=== PATIENT | female | born 1985 | race Caucasian/White ===

== ENCOUNTER → 2024-01-27 07:04 | Outpatient (REF) | payer BC, SELFPAY | LOC: HWRAD 07:04 | PROVIDERS: ATTENDING PHYSICIAN Family Medicine | DX: K42.9 Umbilical hernia without obstruction or gangrene (principal); R10.33 Periumbilical pain | CPT/HCPCS: 76705 ==

== ENCOUNTER → 2024-04-18 14:26 | Outpatient (REF) | payer BC, SELFPAY | LOC: HWRAD 14:26 | PROVIDERS: ATTENDING PHYSICIAN Internal Medicine Endocrinology, Diabetes & Metabolism; FAMILY PHYSICIAN Family Medicine | DX: E04.2 Nontoxic multinodular goiter (principal) | CPT/HCPCS: 76536 ==

== ENCOUNTER 2025-05-16 16:47 | Emergency (ER) | payer BC, SELFPAY ==
[2025-05-16 16:51] VITALS: BP 118/76
[2025-05-16 17:09] LABS: Urine Character Cloudy (Clear)
[2025-05-16 17:27] LABS: Urine Squamous Cell 0-2 /LPF (Few)
[2025-05-16 17:29] LABS: Urine Red Blood Cell >100 /HPF (0-2)
[2025-05-16 17:59] LABS: Hematocrit 37.1 % (37.0-47.0); Hemoglobin 11.5 g/dL (12.0-16.0); Mean Corp Hgb Conc. 31.0 g/dL (33.0-37.0); Mean Corpuscular Volume 82.4 fL (81.0-99.0); Nucleated Red Blood Cells % 0 %; Platelet Count 204 10^3/uL (130-400); Red Cell Dist. Width 14.5 % (11.5-14.5)
[2025-05-16 18:21] LABS: ALT (SGPT) 30 U/L (0-35); AST (SGOT) 36 U/L (14-36); Albumin 4.7 g/dl (3.5-5.0); Alkaline Phosphatase 52 U/L (38-126); Blood Urea Nitrogen 20 mg/dl (7-17); Calcium 9.4 mg/dl (8.4-10.2); Carbon Dioxide 28 mmol/L (22-30); Chloride 104 mmol/L (98-107); Glucose 95 mg/dl (70-99); Potassium 4.2 mmol/L (3.5-5.1); Sodium 137 mmol/L (135-145); Total Protein 8.0 g/dl (6.3-8.2); eGFR > 60.00
--- NOTE | 2025-05-16 19:14 | ED.GENMED ---
History of Present Illness
General
Chief Complaint: Urinary Symptoms
Source: patient
Exam Limitations: none
Time Seen by Provider: 05/16/25 18:53
History of Present Illness
History of Present Illness:
39-year-old female presents with hematuria starting yesterday. She notes a slight increased frequency of urination denies any significant dysuria but does note a mild lower back discomfort in the center. No fevers nausea or vomiting. Of note, she
had an abdominoplasty 7 weeks ago with a hernia repair. She does not recall having a catheter at that time. She is healthy otherwise. She has been moving her bowels. No other complaints at this time
Past History
Past History
ED Past Medical History: NIDDM, Hypothyroidism and Other (PCOS, Heart murmur)
ED Past Surgical History: and Gynecological (Right ovary and tube removed)
Social History
Tobacco: Non-smoker
Alcohol: None
Drug: None
Personal: Single
Living: with family
Employment: Employed
Family History
Family History: Other (Noncontributory)
Phy Exam
Physical Exam
Physical Exam:
General: Well-appearing female no acute respiratory distress
HEENT normal cephalic atraumatic
Heart: Regular rate and rhythm
Lungs: Clear no wheeze
Abdomen is soft and nontender
Extremities: No cyanosis
Course
Orders/Labs/Results
Orders:
Orders
05/16/25 16:59
UA Reflex to Culture [Urinalysis Reflex To Culture] Urgent
Date Specimen was Collected: 05/16/25
Time Specimen was Collected: 16:54
Urine Microscopic Reflex Cult Urgent
Urine Culture Urgent
MINA Source: U
Specimen Description:
Date Specimen was Collected: 05/16/25
Time Specimen was Collected: 16:54
05/16/25 17:48
Complete Blood Count/With Diff Urgent
Comprehensive Metabolic Panel Urgent
05/16/25 19:10
Cefdinir [Omnicef] 300 mg PO NOW STA
Abnormal Lab Results
05/16/25 05/16/25
16:59 17:48
Hgb 11.5 L g/dL
(12.0-16.0)
MCH 25.6 L pg
(27.0-31.0)
MCHC 31.0 L g/dL
(33.0-37.0)
MPV 10.7 H fL
(7.4-10.4)
BUN 20 H mg/dl
(7-17)
Creatinine 0.5 L mg/dL
(0.6-1.0)
Urine Ketones 1+ A
(Negative)
Ur Occult Blood Reflex 4+ A
(Negative)
Leukocyte Esterase Rfl 2+ A
(Negative)
Urine RBC >100 A /HPF
(0-2)
Urine WBC (Reflex) 11-15 A /HPF
(0-5)
Urine Bacteria (Reflex) Many A
(Negative)
Urine Albumin (Reflex) 3+ A
(Neg - Trace)
05/16/25 17:48
05/16/25 17:48
Vital Signs
Initial and Last Documented VS:
Initial Vital Signs
Temp Pulse Resp BP Pulse Ox
98 F 80 20 118/76 99
05/16/25 16:51 05/16/25 16:51 05/16/25 16:51 05/16/25 16:51 05/16/25 16:51
Last Documented Vital Signs
Temp Pulse Resp BP Pulse Ox
98 F 80 20 118/76 99
05/16/25 16:51 05/16/25 16:51 05/16/25 16:51 05/16/25 16:51 05/16/25 16:51
MDM/Problems Addressed
Differential Diagnosis Includes:
Patient with hematuria and increased frequency. Consider UTI versus cystitis versus kidney stone although pain is minimal she has no nausea vomiting looks very comfortable. She does not clinically appear like a kidney stone.
Urinalysis consistent with UTI with white cells blood and bacteria. Considered and discussed about CT scan of the abdomen to evaluate for kidney stone shared decision making occurred we decided against it at this time given her minimal discomfort.
Will cover for UTI and have her follow-up.
*Pulse Oximetry
SaO2: 99
Oxygen Mode of Delivery: Room air
Patient hypoxic: no
*Critical Care Note
Total Time (30-74mins, 75-104mins- exclusive of procedures): Not Applicable
ED Attending Note
-
Portions of this chart may have been created with voice recognition software.� Occasional wrong word or��sound alike� substitutions may have occurred due to the inherent limitations of voice recognition software.
Discharge Plan
Departure
Patient Disposition: Home (Routine Discharge)
Date of Disposition: 05/16/25
Time of Disposition: 19:17
Patient with high blood pressure during this ER visit?: No
Discharge Problem:
UTI (urinary tract infection)
Prescriptions:
New
cefdinir 300 mg capsule
300 mg PO BID Qty: 14 0RF
No Action
multivitamin with folic acid [Tab-A-Ricco] 1 TABLET tablet
1 tab PO HS
(DME) blood sugar diagnostic [Blood Glucose Test] 1 EACH strip
1 ea MC ACHS Qty: 200 0RF
Rx Instructions:
CONTOUR NEXT
E11.65
(DME) pen needle, diabetic 1 EACH needle
1 ea MC ACHS Qty: 200 0RF
Rx Instructions:
BD BOOM pen needles
E11.65
(DME) lancets 1 EACH misc
1 ea MC ACHS Qty: 200 0RF
Rx Instructions:
Contour Next lancets
E11.65
insulin degludec [Tresiba FlexTouch U-100] 100 UNIT/ML insulin pen
32 unit SQ HS Qty: 5 0RF
Rx Instructions:
E11.65
levothyroxine 150 MCG tablet
150 mcg PO DAILY@0700 Qty: 90 0RF
metformin 1,000 MG tablet
1,000 mg PO BID Qty: 240 0RF
insulin lispro [Humalog KwikPen Insulin] 100 UNIT/ML insulin pen
10 units SC AC Qty: 5 0RF
Rx Instructions:
E11.65
hydrocodone-acetaminophen 1 TABLET tablet
1 tab PO Q4HPRN PRN (Reason: pain) Qty: 10 0RF
ibuprofen 600 MG tablet
600 mg PO Q6HPRN PRN (Reason: pain) Qty: 20 0RF
meclizine 25 MG tablet
25 - 50 mg PO BID PRN (Reason: dizziness) Qty: 20 0RF
ondansetron 4 MG tablet,disintegrating
4 mg PO TIDPRN PRN (Reason: nausea/vomiting) Qty: 15 0RF
cefpodoxime 200 MG tablet
200 mg PO BID Qty: 20 0RF
Referrals:
Monique Owens DO [Family Provider, Family Practice]
Activity Restrictions/Additional Instructions:
Drink plenty of fluids. Use antibiotics as directed. Return if worse otherwise follow-up with your doctor
Interventions
Interventions:
*Risk Screen - Suicide Last Done: 05/16/25 16:51
*General Assessment Last Done: 05/16/25 16:51
*Neglect/Abuse Screening Last Done: 05/16/25 16:51
Discharge Date and Time
Print Language: UKRAINIAN
[2025-05-16 19:25] VITALS: BP 145/81; BMI 24.7
[2025-05-16] MEDS: OMNICEF 300 MG PO (19:34)
== END 2025-05-16 19:39 | disposition home or self-care (01) ==
LOC: EMR 16:47
PROVIDERS: EMERGENCY PHYSICIAN Emergency Medicine; FAMILY PHYSICIAN Family Medicine
DX: N39.0 Urinary tract infection, site not specified (principal); E11.9 Type 2 diabetes mellitus without complications; R01.1 Cardiac murmur, unspecified; E03.9 Hypothyroidism, unspecified; E28.2 Polycystic ovarian syndrome; Z79.84 Long term (current) use of oral hypoglycemic drugs; Z79.4 Long term (current) use of insulin
CPT/HCPCS: 99283; 80053; 81003; 81015; 85025; 87086; 87088

== ENCOUNTER 2025-06-19 15:50 | Inpatient (IN) | payer BC, SELFPAY ==
[2025-06-19] VITALS (12 sets, daily range): BP systolic 131–153; BP diastolic 69–90; BMI 25.8; BMI 26.8
--- NOTE | 2025-06-19 10:58 | ED.GENMED ---
History of Present Illness
<Megan Cruz PA-C - Last Filed: 06/19/25 23:36>
General
Chief Complaint: Flank Pain
Source: patient
Exam Limitations: none
Time Seen by Provider: 06/19/25 10:49
Nursing documentation reviewed up to this point in time: agreed with
History of Present Illness
History of Present Illness:
Patient is a 39 year old female with history of type 2 diabetes, gastric bypass who presents to the emergency department with left flank pain. Patient describes a dull ache in her left back a few days ago which was radiating into her left abdomen.
Symptoms seem to dissipating yesterday she was asymptomatic. However, this morning around 4:30 AM a sharp pain in her left flank woke her from sleep. She describes constant and sharp pain radiating from her left lower back into her mid abdomen.
She describes nausea however no episodes of vomiting. She denies any fever or chills. No dysuria or hematuria. No chest pain or shortness of breath.
Of note�patient does have a remote history of kidney stones. She was treated for a UTI a few weeks ago.
Past History
<Megan Cruz PA-C - Last Filed: 06/19/25 23:36>
Past History
ED Past Medical History: NIDDM, Hypothyroidism and Other (PCOS, Heart murmur)
ED Past Surgical History: and Gynecological (Right ovary and tube removed)
Social History
Tobacco: Non-smoker
Alcohol: None
Drug: None
Personal: Single
Living: with family
Employment: Employed
Family History
Family History: Other (Noncontributory)
Review of Systems
<Megan Cruz PA-C - Last Filed: 06/19/25 23:36>
Review of Systems
Allergies reviewed?: Yes
All Other Systems: ROS reviewed and negative except as documented in HPI and ROS
Phy Exam
<Megan Cruz PA-C - Last Filed: 06/19/25 23:36>
Physical Exam
Physical Exam:
Vitals: Hypertensive, otherwise vital signs stable. Afebrile
General: Patient is tearful and very uncomfortable due to pain.
Skin: Warm and dry, no rashes or lesions
Head: Normocephalic, atraumatic
Eyes: Sclera nonicteric. EOMs intact. No nystagmus.
Throat: Protecting airway
Neck: Normal ROM, no cervical spine tenderness, no meningismus
Cardiac: Regular rate and rhythm, no murmurs.
Pulm: Normal respiratory effort. Lungs clear bilaterally
Abdomen: Abdomen soft. Mild reproducible tenderness in the left mid abdomen and left flank. No rash or ecchymoses
Extremities: No evidence of cyanosis or edema
Neuro: AAOx3. Grossly intact.
Psychiatric: Normal affect.
Course
<Megan Cruz PA-C - Last Filed: 06/19/25 23:36>
Orders/Labs/Results
Orders:
Orders
06/19/25 Lunch
NPO
Allow oral meds: No
Allow clear liquids: No
NPO with Ice Chips: Yes
06/19/25 10:55
Abdomen/Pelvis wo Contrast CT [CT Abd/pelvis Wo Iv Cont] Urgent
Comment:
Reason For Exam: L flank pain
0.9% Sodium Chloride 1000 ml [Nss] 1,000 ml IV BOLUS
HYDROmorphone [Dilaudid] 0.5 mg IV NOW STA
Ondansetron Injectable [Zofran] 4 mg IV NOW STA
06/19/25 11:04
Test Result ONCE
06/19/25 11:05
Complete Blood Count/With Diff Urgent
Comprehensive Metabolic Panel Urgent
HCG, Serum Qualitative Screen Urgent
06/19/25 13:05
HYDROmorphone [Dilaudid] 0.5 mg IV NOW STA
06/19/25 13:14
Urinalysis Reflex To Culture Urgent
Date Specimen was Collected: 06/19/25
Time Specimen was Collected: 13:14
Urine Microscopic Reflex Cult Urgent
Urine Culture Urgent
MINA Source: U
Specimen Description:
Date Specimen was Collected: 06/19/25
Time Specimen was Collected: 13:14
06/19/25 13:40
Ondansetron Injectable [Zofran] 4 mg .ROUTE .[facility]
06/19/25 13:42
Ondansetron Injectable [Zofran] 4 mg IV NOW STA
06/19/25 13:49
UROLOGY CONSULT Urgent
Consulting Provider: Huey Chavez
Was physician already notified: Yes
CefTRIAXone [Rocephin] 1,000 mg IV NOW STA
06/19/25 14:53
Admit/Transfer Patient As Directed
Co-Sign Provider:
Level of Care: Inpatient admission
Assign to:: Medical/Surgical
Physician / Group: Hospitalist
Diagnosis: Kidney stone
Reason for Hospitalization: Kidney stone
Expected length of stay greater than two midnights?: Yes
ELOS- Estimated Length of Stay in days: 3
I certify the patient meets the requirements for IP care: Yes
PRN Pain Medication Management As Directed
May give lesser potent ordered pain med per pt: Yes
preference::
Protocol:: Medication orders for pain may be administered in a
manner that supports deferring to patient preference
when the pt is:
- Requesting an ordered lesser potent pain medication.
Least to most potent pain medications are defined
as: acetaminophen < NSAID < tramadol < opioids
(morphine, oxycodone, hydromorphone).
- Requesting a lesser dose of the same medication IF
ORDERED.
- Requesting a less intrusive route of administration
if both routes are prescribed by the provider (PO <
IV).
06/19/25 14:55
Code Status As Directed
Resuscitation Status: Full Code
06/19/25 15:36
0.9% Sodium Chloride 1000 ml [Nss] 1,000 ml IV 100 mls/hr
HYDROmorphone [Dilaudid] 0.5 mg IV Q4HPRN PRN
Ondansetron Injectable [Zofran] 4 mg IV Q6HPRN PRN
06/19/25 17:58
Activity As Directed
Activity Level: Out of Bed-Early Mobility
Pneumatic Compression Sleeves As Directed
Type: Knee high
Vital Signs As Directed
Frequency: Per unit guidelines
DX Deep Vein Thrombosis Video Routine
06/20/25 06:00
Basic Metabolic Panel IN AM
Complete Blood Count/With Diff IN AM
Levothyroxine [Synthroid] 150 mcg PO DAILY@0600
06/20/25 08:00
Ferrous Sulfate [Feosol] 325 mg PO DAILY
Liothyronine [Cytomel] 10 microgram PO DAILY
Multivitamin [Theragran] 1 tablet PO DAILY
vitamin A 2,400 mcg PO DAILY
06/20/25 14:53
desonide 1 applic TOPICAL DAILY PRN
06/21/25 08:00
Ergocalciferol [Drisdol (Vitamin D2)] 50,000 units PO FR@0800
Abnormal Lab Results
06/19/25 06/19/25
11:05 13:14
Hgb 11.1 L g/dL
(12.0-16.0)
Hct 34.3 L %
(37.0-47.0)
MCV 80.7 L fL
(81.0-99.0)
MCH 26.1 L pg
(27.0-31.0)
MCHC 32.4 L g/dL
(33.0-37.0)
RDW 15.9 H %
(11.5-14.5)
Absolute Lymphs (auto) 1.0 L 10^3/uL
(1.2-3.4)
Lymphocytes % 15.1 L %
(20.5-51.1)
Chloride 109 H mmol/L
(98-107)
Urine Ketones 3+ A
(Negative)
Ur Occult Blood Reflex 3+ A
(Negative)
Urine RBC 26-30 A /HPF
(0-2)
Urine Bacteria (Reflex) Moderate A
(Negative)
Urine Albumin (Reflex) 1+ A
(Neg - Trace)
06/19/25 11:05
06/19/25 11:05
Vital Signs
Initial and Last Documented VS:
Initial Vital Signs
Temp Pulse Resp BP Pulse Ox
98.1 F 62 16 150/90 98
06/19/25 10:46 06/19/25 10:46 06/19/25 10:46 06/19/25 10:46 06/19/25 10:46
Last Documented Vital Signs
Temp Pulse Resp BP Pulse Ox
98.3 F 103 20 118/81 95
06/19/25 22:54 06/19/25 22:54 06/19/25 22:54 06/19/25 22:54 06/19/25 22:54
<Fabian Stoll MD - Last Filed: 06/19/25 14:05>
Orders/Labs/Results
Orders:
Orders
06/19/25 Lunch
NPO
Allow oral meds: No
Allow clear liquids: No
NPO with Ice Chips: Yes
06/19/25 10:55
Abdomen/Pelvis wo Contrast CT [CT Abd/pelvis Wo Iv Cont] Urgent
Comment:
Reason For Exam: L flank pain
0.9% Sodium Chloride 1000 ml [Nss] 1,000 ml IV BOLUS
HYDROmorphone [Dilaudid] 0.5 mg IV NOW STA
Ondansetron Injectable [Zofran] 4 mg IV NOW STA
06/19/25 11:04
Test Result ONCE
06/19/25 11:05
Complete Blood Count/With Diff Urgent
Comprehensive Metabolic Panel Urgent
HCG, Serum Qualitative Screen Urgent
06/19/25 13:05
HYDROmorphone [Dilaudid] 0.5 mg IV NOW STA
06/19/25 13:14
Urinalysis Reflex To Culture Urgent
Date Specimen was Collected: 06/19/25
Time Specimen was Collected: 13:14
Urine Microscopic Reflex Cult Urgent
Urine Culture Urgent
MINA Source: U
Specimen Description:
Date Specimen was Collected: 06/19/25
Time Specimen was Collected: 13:14
06/19/25 13:40
Ondansetron Injectable [Zofran] 4 mg .ROUTE .[facility]
06/19/25 13:42
Ondansetron Injectable [Zofran] 4 mg IV NOW STA
06/19/25 13:49
UROLOGY CONSULT Urgent
Consulting Provider: Huey Chavez
Was physician already notified: Yes
CefTRIAXone [Rocephin] 1,000 mg IV NOW STA
06/19/25 14:53
Admit/Transfer Patient As Directed
Co-Sign Provider:
Level of Care: Inpatient admission
Assign to:: Medical/Surgical
Physician / Group: Hospitalist
Diagnosis: Kidney stone
Reason for Hospitalization: Kidney stone
Expected length of stay greater than two midnights?: Yes
ELOS- Estimated Length of Stay in days: 3
I certify the patient meets the requirements for IP care: Yes
PRN Pain Medication Management As Directed
May give lesser potent ordered pain med per pt: Yes
preference::
Protocol:: Medication orders for pain may be administered in a
manner that supports deferring to patient preference
when the pt is:
- Requesting an ordered lesser potent pain medication.
Least to most potent pain medications are defined
as: acetaminophen < NSAID < tramadol < opioids
(morphine, oxycodone, hydromorphone).
- Requesting a lesser dose of the same medication IF
ORDERED.
- Requesting a less intrusive route of administration
if both routes are prescribed by the provider (PO <
IV).
06/19/25 14:55
Code Status As Directed
Resuscitation Status: Full Code
06/19/25 15:36
0.9% Sodium Chloride 1000 ml [Nss] 1,000 ml IV 100 mls/hr
HYDROmorphone [Dilaudid] 0.5 mg IV Q4HPRN PRN
Ondansetron Injectable [Zofran] 4 mg IV Q6HPRN PRN
06/19/25 17:58
Activity As Directed
Activity Level: Out of Bed-Early Mobility
Pneumatic Compression Sleeves As Directed
Type: Knee high
Vital Signs As Directed
Frequency: Per unit guidelines
DX Deep Vein Thrombosis Video Routine
06/20/25 06:00
Basic Metabolic Panel IN AM
Complete Blood Count/With Diff IN AM
Levothyroxine [Synthroid] 150 mcg PO DAILY@0600
06/20/25 08:00
Ferrous Sulfate [Feosol] 325 mg PO DAILY
Liothyronine [Cytomel] 10 microgram PO DAILY
Multivitamin [Theragran] 1 tablet PO DAILY
vitamin A 2,400 mcg PO DAILY
06/20/25 14:53
desonide 1 applic TOPICAL DAILY PRN
06/21/25 08:00
Ergocalciferol [Drisdol (Vitamin D2)] 50,000 units PO FR@0800
Abnormal Lab Results
06/19/25 06/19/25
11:05 13:14
Hgb 11.1 L g/dL
(12.0-16.0)
Hct 34.3 L %
(37.0-47.0)
MCV 80.7 L fL
(81.0-99.0)
MCH 26.1 L pg
(27.0-31.0)
MCHC 32.4 L g/dL
(33.0-37.0)
RDW 15.9 H %
(11.5-14.5)
Absolute Lymphs (auto) 1.0 L 10^3/uL
(1.2-3.4)
Lymphocytes % 15.1 L %
(20.5-51.1)
Chloride 109 H mmol/L
(98-107)
Urine Ketones 3+ A
(Negative)
Ur Occult Blood Reflex 3+ A
(Negative)
Urine RBC 26-30 A /HPF
(0-2)
Urine Bacteria (Reflex) Moderate A
(Negative)
Urine Albumin (Reflex) 1+ A
(Neg - Trace)
06/19/25 11:05
06/19/25 11:05
Vital Signs
Initial and Last Documented VS:
Initial Vital Signs
Temp Pulse Resp BP Pulse Ox
98.1 F 62 16 150/90 98
06/19/25 10:46 06/19/25 10:46 06/19/25 10:46 06/19/25 10:46 06/19/25 10:46
Last Documented Vital Signs
Temp Pulse Resp BP Pulse Ox
98.3 F 103 20 118/81 95
06/19/25 22:54 06/19/25 22:54 06/19/25 22:54 06/19/25 22:54 06/19/25 22:54
<Megan Cruz PA-C - Last Filed: 06/19/25 23:36>
MDM/Problems Addressed
Differential Diagnosis Includes:
Not limited to: Renal colic, pyelonephritis, diverticulitis, muscle strain/spasm, constipation, etc.
MDM/Problems Addressed:
39-year-old female with three days of left flank pain acutely worse today and associated with nausea. No fevers, vomiting, dysuria. History of kidney stones.
Vital signs stable on arrival. On exam, patient appears moderately uncomfortable due to pain, however nontoxic. Abdomen with mild reproducible tenderness in left mid abdomen/flank. Cardio/pulmonary assessment unremarkable.
High clinical suspicion for renal colic based on history and presenting symptoms. Will check labs, UA, noncontrast scan abdomen/pelvis. Will avoid Toradol with history of gastric bypass and give IV Dilaudid, IV fluids, and Zofran.
Update: labs unremarkable. No leukocytosis or renal insufficiency. Patient�s pain does respond to Dilaudid however quickly returns and she has required multiple doses while in emergency department. Her CT scan reveals an 8 mm left proximal ureteral
stone with moderate hydronephrosis. UA with bacteria, however, appears more contaminated. No clear evidence of infection.
Given size of stone and degree of discomfort � case was discussed with urology who recommends admission for stent placement. Patient agreeable with this plan. Patient given IV Rocephin in ED and admitted to hospitalist service. Urology aware.
Chronic conditions affecting care:
Type 2 diabetes, history of gastric bypass, history of kidney stones
Acute Exacerbation and/or Progression of Chronic Illness:
8 mm left proximal ureteral stone
<Megan Cruz PA-C - Last Filed: 06/19/25 23:36>
*Radiology
Radiology exam reviewed: radiology read reviewed
*Pulse Oximetry
SaO2: 98
Oxygen Mode of Delivery: Room air
Patient hypoxic: no
*EKG
Interpreted by ED Provider?: NA
*Electric Locomotive Firer/Fireman Interpretation
Rate: Electric Locomotive Firer/Fireman- N/A
*Critical Care Note
Total Time (30-74mins, 75-104mins- exclusive of procedures): Not Applicable
<Megan Cruz PA-C - Last Filed: 06/19/25 23:36>
Patient Management
Discussion with other providers: Hospitalist and Painter Hand (Case discussed with urology)
Escalation/DeEscalation of care consider admission/obs:
Admit with plan for OR for stent placement
ED Attending Note
<Megan Cruz PA-C - Last Filed: 06/19/25 23:36>
-
Portions of this chart may have been created with voice recognition software.� Occasional wrong word or��sound alike� substitutions may have occurred due to the inherent limitations of voice recognition software.
<Fabian Stoll MD - Last Filed: 06/19/25 14:05>
ED Attending Note
Patient seen and examined by attending physician: Yes
I performed the substantive portion of visit, reviewed & personally made and approve the management plan that is documented in note by myself or XIMENA.: Yes
ED Attending Note:
Intermittent left flank pain for over 24 hours. Now relatively severe. Some nausea and vomiting. No fever or chills.
On exam patient is nontoxic in no distress. No CVA tenderness. Warm and dry. Perfusing well. No respiratory distress. Abdomen is nontender. Grossly nonfocal.
Normal white count. No fever. Large 8 mm obstructing stone proximal left ureter.
Low suspicion for infectious issue. However with large stone and significant pain patient will be admitted for definitive management
Discharge Plan
Departure
Patient Disposition: Admit
Date of Disposition: 06/19/25
Time of Disposition: 13:51
Presentation/result/management discussed w/ accepting MD/DO: Hospitalist
Discharge Problem:
Calculus of proximal left ureter
Interventions
Interventions:
*Risk Screen - Suicide Last Done: 06/19/25 10:46
*General Assessment Last Done: 06/19/25 10:46
*Neglect/Abuse Screening Last Done: 06/19/25 10:46
*ED COVID-19 Vaccine History Last Done: 06/19/25 10:46
*ED Influenza Vaccine History Last Done: 06/19/25 10:46
[facility] Fall Risk Assessment Tool Last Done: 06/19/25 15:31
*Nursing Disposition Last Done: 06/19/25 17:49
ZK-Eamhaf-Ocxwpujuuz Assessment Last Done: 06/19/25 11:37
ED-Female Genitourinary Assessment Last Done: 06/19/25 15:32
Discharge Date and Time
Discharge Date/Time: 06/19/25 17:52
[2025-06-19] MEDS: DILAUDID 0.5 MG IV ×4 (11:06→20:56)
[2025-06-19] MEDS: ZOFRAN 4 MG IV ×3 (11:06→20:55)
[2025-06-19] MEDS: NSS 1000 IV ×2 (11:07→17:09)
[2025-06-19 11:14] LABS: Hematocrit 34.3 % (37.0-47.0); Hemoglobin 11.1 g/dL (12.0-16.0); Mean Corp Hgb Conc. 32.4 g/dL (33.0-37.0); Mean Corpuscular Volume 80.7 fL (81.0-99.0); Nucleated Red Blood Cells % 0 %; Platelet Count 174 10^3/uL (130-400); Red Cell Dist. Width 15.9 % (11.5-14.5)
[2025-06-19 11:37] LABS: HCG, Serum Qualitative Screen Negative
[2025-06-19 11:43] LABS: ALT (SGPT) 21 U/L (0-35); AST (SGOT) 29 U/L (14-36); Albumin 3.9 g/dl (3.5-5.0); Alkaline Phosphatase 52 U/L (38-126); Blood Urea Nitrogen 16 mg/dl (7-17); Calcium 8.9 mg/dl (8.4-10.2); Carbon Dioxide 25 mmol/L (22-30); Chloride 109 mmol/L (98-107); Glucose 86 mg/dl (70-99); Potassium 3.8 mmol/L (3.5-5.1); Sodium 137 mmol/L (135-145); Total Protein 6.5 g/dl (6.3-8.2); eGFR > 60.00
[2025-06-19 13:57] LABS: Urine Character Clear (Clear)
[2025-06-19 14:26] LABS: Urine Squamous Cell 26-30 /LPF (Few); Urine Urothelial Cell 0-2 /LPF (FEW)
[2025-06-19 14:27] LABS: Urine Red Blood Cell 26-30 /HPF (0-2)
--- NOTE | 2025-06-19 14:57 | HPS.HSE ---
Family Physician
-
Family Physician: Monique Owens
Chief Complaint
-
Abdominal pain
History of Present Illness
39-year-old female with history of bariatric surgery 2022, type 2 diabetes on Monjaro, hypothyroidism presents with left back pain and abdominal pain. Patient states that 2 nights she had left back pain which radiated to her abdomen on the left
side. She hydrated herself and the pain resolved. However last night she experienced severe stabbing pain in left abdomen and pressure on left side of back which woke her up from sleep. She has history of kidney stone. She denies hematuria,
fever, chills. She admits to having nausea last night and had one episode of vomiting in ED.
Upon arrival to the ED, vitals are stable, labs okay with normal leukocyte count . CT abdomen/pelvis shows 8 mm proximal left ureteral calculus with moderate hydroureteronephrosis.
Medical History
Past Medical History
Past Medical History: Reports Hypothyroidism and Other (Type 2 diabetes, s/p bariatric surgery, anxiety/depression)
Past Surgical History: Reports Other (Bariatric surgery)
Social History
Tobacco: Non-smoker
Alcohol: None
Drug: None
Personal: Single
Living: With Family
Employment: Employed
Family History
Family History: Not pertinent
Allergies / Home Medications
Allergies reflects when Allergies were last updated in [employer].
Home Medications with original date entered in [employer]
Allergy/Medication List:
Allergies
Allergy/AdvReac Type Severity Reaction Status Date / Time
tetanus and diphtheria Allergy swelling Verified 06/19/25 10:48
toxoids (tetanus & at
diphtheria toxoids) injection
site
Home Medications
levothyroxine 150 mcg tablet 150 mcg PO DAILY@0700 #90 tabs 05/01/20
desonide 0.05 % topical cream 1 applic topical DAILY PRN eczema 06/19/25
ergocalciferol (vitamin D2) 1,250 mcg (50,000 unit) capsule 1,250 mcg PO MOWEFR 06/19/25
ferrous sulfate 325 mg (65 mg iron) tablet 325 mg PO DAILY 06/19/25
liothyronine 5 mcg tablet 10 mcg PO DAILY 06/19/25
therapeutic multivitamin 1 tab PO DAILY 06/19/25
tirzepatide 12.5 mg/0.5 mL subcutaneous pen injector (Mounjaro) 12.5 mg SC RANKIN 06/19/25
vitamin A 2,400 mcg capsule 2,400 mcg PO DAILY 06/19/25
Review of Systems
-
History Source: Patient
A 12 point ROS was completed and negative except as noted: Yes
Physical Exam
Vital Signs
Vital Signs
Temp Pulse Resp BP Pulse Ox
98.1 F 60 16 150/72 98
06/19/25 10:46 06/19/25 12:29 06/19/25 12:29 06/19/25 12:29 06/19/25 12:29
Physical Exam
General: Comfortable, Conversant and Other
HEENT: NormoCephalic, Anicteric and Moist mucous membranes
Respiratory: Clear
Cardiac: S1/S2 and Regular Rhythm
GI: Soft, Non Distended, Normal Bowel Sounds and Tender (mild LLQ)
Musculoskeletal: No Edema
Neuro: AO x 3
Hematologic/Lymphatic: No Lymphadenopathy
Psych: Calm
Laboratory Results
-
06/19/25 11:05
06/19/25 11:05
Laboratory Results
Total Bilirubin 0.5 mg/dl (0.2-1.3) 06/19/25 11:05
AST 29 U/L (14-36) 06/19/25 11:05
ALT 21 U/L (0-35) 06/19/25 11:05
Alkaline Phosphatase 52 U/L (38-126) 06/19/25 11:05
Data Reviewed
-
CT Scan: Report Reviewed by me and Discussed with Physician
Lab Data: Labs Reviewed by me and Discussed with Physician
Impression/Plan
-
IMPRESSION:
Left proximal ureteral stone with moderate hydroureteronephrosis
S/p bariatric surgery
Type 2 diabetes mellitus
Hypothyroidism
PLAN:
Left proximal ureteral stone with moderate hydroureteronephrosis
8 mm stone on left ureter on CT scan
Appreciate urology input
Afebrile, normal WBC
NPO, plan for stent possibly tonight
Hold all oral medications
IV fluid, pain control.
s/p IV Rocephin
Monitor white count and temp control.
Clear liquid diet after the procedure.
S/p bariatric surgery 2022
Hold oral meds
Resume supplements 06/20/25
Type 2 DM
Resolved/improved after bariatric surgery
Hold Mounjaro
Previous A1C 5.4.
Hypothyroidism
Continue thyroid medications.
Full code
NPO
SCD
[2025-06-19] MEDS: ROCEPHIN 1000 MG IV (15:40)
--- NOTE | 2025-06-19 16:35 | W.PN.UPDATE ---
Update Note
Progress Note Update
This is an addendum to H&P written by Resident Physician Dr. Kevin Vasquez
I saw and examined the patient.
The resident physician's note was reviewed and I agree with the note.
Comment:
Ms. Zhanna Gillespie is a 39 yo woman with hx DM II, gastric bypass, hypothyroidism who presents to the ER with left flank pain.
Triage VS with mild hypertension. Labs without leukocytosis, normal renal function with creatinine 0.6.
CT A/P
IMPRESSION:
8 mm proximal left ureteral calculus with associated moderate left hydroureteronephrosis.
Obstructing Nephrolithiasis
-Urology aware of admission and planning for OR this evening
-admit to med/surg
-IVF ordered
-IV Dilaudid PRN
-s/p IV Ceftriaxone, urine WBC 3-5, hold off on further antibiotics
Hypothyroidism - CLOTH FRAMER Synthroid, Liothyronine
DM - patient on Mounjaro
DVT PPx SCD
FULL CODE
--- NOTE | 2025-06-19 17:35 | CM ---
Chart reviewed and spoke with patient at ED bedside
She lives [place] with 11 yo son and father
Independent
no DME
Working maritime officer
PCP Monique Owens
[facility]
no hx of VN nor SNF
DCP is to go home with no needs
Cm will continue to follow up for any dcp needs
--- NOTE | 2025-06-19 17:44 | W.PN.URO.CBU ---
Today's Communication / Plan
-
to op room
Assessment / Plan
-
intractable psian 8 mm stone wll attempt laser removal and stent if non toxic
Diagnosis
-
Date of Service: June 19, 2025
-
Patient Diagnosis:left 8mm prox ureteral stone with intractable pain
Post Op Day:
Subjective
-
colic no fever chills
Objective
-
Vital Signs
Temp Pulse Resp BP Pulse Ox
98.4 F 56 18 150/79 98
06/19/25 15:31 06/19/25 17:07 06/19/25 17:07 06/19/25 17:07 06/19/25 17:07
Laboratory Results
06/19/25 11:05
06/19/25 11:05
Review of Systems
-
Abdomen/GI: Nausea
: Flank Pain
Physical Exam
-
General - well developed, well nourished, non toxic
Chest - clear bilaterally
Abdomen - soft, non-tender, positive bowel sounds, left CVAT, no incisional pain or distention
Genitalia - normal
Rectal - normal
Skin - warm & dry with no rash
Neuro - AOx3, no motor deficits
Extremities - no clubbing, no cyanosis, no edema
Incision - clean, dry
Dressing - clean, dry, intact
Counseling
-
to op room
Care Review
Data Reviewed
Discussed with: Hospitalist and Nursing
CT Scan: Image Pers Reviewed
--- NOTE | 2025-06-19 18:36 | PTCARENOTE ---
Pt arrived to unit around 1750 and left for OR around 1800. Report given to OR by ED. Pt states that pain is tolerable at this time. VSS. Plan of care ongoing.
--- NOTE | 2025-06-19 19:14 | W.SUR.POST ---
Surgical Immediate Post Op
Note
Pre Op Diagnosis: left ureteral stone with intracatable pain
Post Op Diagnosis: same
Procedure Performedleft ureteroscopy ;laser basket extraction l jj stent:
Primary Surgeon: steve
Secondary Surgeons:
Anesthesia: katin general
Estimated Blood Loss: 1c
Fluids: nss
Drains/Shunts: 6 24 jj stent
Specimens/Cultures: stone
Doppler/Duplex/Angio (Y/N):
Complications: 0
Operative Findings: severla small renal ca;lculi 8 mm lg prox left uretral stone
[2025-06-20] MEDS: SYNTHROID 150 MCG PO (06:14)
[2025-06-20] MEDS: NSS 1000 IV (06:14)
[2025-06-20 06:19] LABS: Hematocrit 34.1 % (37.0-47.0); Hemoglobin 11.1 g/dL (12.0-16.0); Mean Corp Hgb Conc. 32.6 g/dL (33.0-37.0); Mean Corpuscular Volume 82.2 fL (81.0-99.0); Nucleated Red Blood Cells % 0.3 %; Platelet Count 197 10^3/uL (130-400); Red Cell Dist. Width 15.8 % (11.5-14.5)
[2025-06-20 06:47] LABS: Blood Urea Nitrogen 13 mg/dl (7-17); Calcium 8.3 mg/dl (8.4-10.2); Carbon Dioxide 23 mmol/L (22-30); Chloride 108 mmol/L (98-107); Estimated Creatinine Clearance 111 ml/min; Glucose 114 mg/dl (70-99); Potassium 3.9 mmol/L (3.5-5.1); Sodium 135 mmol/L (135-145); eGFR > 60.00
[2025-06-20 07:00] VITALS: BP 109/44
[2025-06-20] MEDS: FEOSOL 325 MG PO (08:13)
[2025-06-20] MEDS: THERAGRAN 1 TABLET PO (08:13)
[2025-06-20] MEDS: CYTOMEL 10 MICROGRAM PO (08:13)
--- NOTE | 2025-06-20 09:08 | W.PN.HOSP.TC ---
Addendum entered and electronically signed by Helena Porter MD 06/21/25 08:42:
Total DC time 40 minutes
Addendum entered and electronically signed by Helena Porter MD 06/20/25 12:09:
A/P:
# Left proximal ureteral stone with moderate hydroureteronephrosis s/p laser removal and stent placement on admission
per Uro, patient can be discharged home today with antibiotics and plan for stent removal on Tuesday.
DC with Keflex for 5 days
Original Note:
Today's Communication/Plan
-
- Discharge home today
- Per urology recommendations, dc with antibiotics until stent removal on Tuesday
Assessment / Plan
Assessment / Plan
#Left proximal ureteral stone with moderate hydroureteronephrosis
- 8 mm stone seen on the left ureter on CT scan
- Urology consulted, took patient for laser removal and stent placement on 06/19
- Per urology's postop note, several small renal calculi noted and one 8 mm large proximal left ureteral stone.
- Patient can be discharged home today with antibiotics and plan for stent removal on Tuesday.
#S/p bariatric surgery 2022
- Holding oral meds while admitted
- Resume supplements today 06/20
#Type 2 diabetes
- Resolved/improved after bariatric surgery
- Holding Mounjaro while admitted
- Last A1c 5.40
#Hypothyroidism
- Continue thyroid medications
Anticipated Discharge: Today
Subjective/Interval History
-
Date of Service: June 20, 2025
Patient seen sitting up in bed this morning. Patient feels well and has near complete improvement in her pain. Patient still notes some pressure in her back, but no abdominal pain. Patient is hopeful she can go home today.
Objective Data
-
Labs:
Laboratory Results
06/20/25
06:03
WBC 6.8
Hgb 11.1 L
Hct 34.1 L
Plt Count 197
Sodium 135
Potassium 3.9
Chloride 108 H
Carbon Dioxide 23
BUN 13
Creatinine 0.5 L
Glucose 114 H
Calcium 8.3 L
Vital Signs:
Vital Signs
Temp Pulse Resp BP Pulse Ox
98.4 F 73 16 109/44 98
06/20/25 07:00 06/20/25 07:00 06/20/25 07:00 06/20/25 07:00 06/20/25 07:00
I&O
06/19/25 06/20/25 06/21/25
06:59 06:59 06:59
Intake Total 1000 / 1000
Balance 1000 / 1000
Review of Systems
-
History Source: Patient
Constitutional: Reports No Symptoms
EENT: Reports No Symptoms Reported
Respiratory: Reports No Symptoms
Cardiac: Reports No Symptoms
Abdomen/GI: Reports No Symptoms
Breast: Reports No Symptoms
Genitourinary: Reports No Symptoms
Musculoskeletal: Reports No Symptoms
Skin: Reports No Symptoms
Neuro: Reports No Symptoms
Endocrine: Reports No Symptoms
Hematologic / Lymphatic: Reports No Symptoms
Allergy / Immunology: Reports No Symptoms
Physical Exam
-
General: Well Developed, Well Nourished and No Apparent Distress
HEENT: Normocephalic, Atraumatic and Moist Mucous Membranes
Respiratory: Clear to Auscultation
Cardiac: Regular Rhythm and S1/S2
GI: Soft, Nontender and Nondistended
Musculoskeletal: No Edema
Skin: Warm and Dry
Neuro: Awake, Alert and Oriented
Psych: Calm
--- NOTE | 2025-06-20 09:35 | W.PN.URO.CBU ---
Today's Communication / Plan
-
ok for d/c
Assessment / Plan
-
intractable pain gone valerio d/c out pt=atirent stent removal
Diagnosis
-
Date of Service: June 20, 2025
-
Patient Diagnosis:
Post Op Day:
Patient Diagnosis:left 8mm prox ureteral stone with intractable pain
Post Op Day:
Subjective
-
much improved
Objective
-
Vital Signs
Temp Pulse Resp BP Pulse Ox
98.4 F 73 16 109/44 98
06/20/25 07:00 06/20/25 07:00 06/20/25 07:00 06/20/25 07:00 06/20/25 07:00
Intake and Output
06/19/25 06/20/25 06/21/25
06:59 06:59 06:59
Intake Total 1000 / 1000
Balance 1000 / 1000
Intake:
IV fluids (Total) 1000 / 1000
Laboratory Results
06/20/25 06:03
06/20/25 06:03
Review of Systems
-
: Frequency
Physical Exam
-
General - well developed, well nourished, no acute distress
Chest - clear bilaterally
Abdomen - soft, non-tender, positive bowel sounds, no CVAT, no incisional pain or distention
Genitalia - normal
Rectal - normal
Skin - warm & dry with no rash
Neuro - AOx3, no motor deficits
Extremities - no clubbing, no cyanosis, no edema
Incision - clean, dry
Dressing - clean, dry, intact
Counseling
-
d/c if ok hospitaist
Care Review
Data Reviewed
Discussed with: Hospitalist and Nursing
--- NOTE | 2025-06-20 11:54 | W.DCSUMMARY ---
Documented by User: Lulu Felton DO, Resident 06/20/25 12:01
Discharge Summary
Discharge Data
Date of Admission: 06/19/25
Date of Discharge: 06/20/25
-
Pending Results: Yes
Additional Pending Results:
Urine culture
Hospital Course
Primary diagnosis: Left proximal ureteral stone with moderate hydroureteronephrosis status post stent placement this admission
Secondary diagnosis: Status post bariatric surgery in 2022, Type 2 diabetes
Hospital course:
Patient is a 39-year-old female with PMH of bariatric surgery in 2022, type 2 diabetes on unro and hypothyroidism who is presenting to [facility] with left back pain and abdominal pain. Patient had been experiencing this pain for 2 nights but came to
the ED when it did not resolve. In the ED patient's vitals were stable and labs were unremarkable. CT abdomen pelvis showed an 8 mm proximal left ureteral calculus with moderate hydroureteronephrosis. Patient was started on IV fluids, antibiotics
and urology was consulted. Urology then took patient to the OR for laser removal and stent placement on 06/19/2025. Patient recovered well from the procedure and notes complete resolution of pain. Patient will be discharged home today with a
5-day course of antibiotics and will follow-up with urology as an outpatient for stent removal.
Patient will be discharged home today.
Imaging:
06/19/2025 CT abdomen and pelvis
IMPRESSION:
8 mm proximal left ureteral calculus with associated moderate left hydroureteronephrosis.
Discharge Plan
-
Patient Disposition: Home (Routine Discharge)
Discharge Diagnosis/Procedures: Left proximal ureteral stone with moderate hydroureteronephrosis status post stent placement this admission,
Status post bariatric surgery in 2022,
Type 2 diabetes
Condition: Good
Diet: No restrictions, As tolerated and Diabetic, Carb Controlled
Activity: No restrictions
Driving Restrictions: As prior to admission
Bathing Restrictions: None
Activity Restrictions/Additional Instructions:
Please follow-up with Urology.
Please take antibiotics for next 5 days: Keflex 500 mg by mouth twice daily
Stand Alone Forms: Return to Work
Referrals:
Huey Chavez MD [Active, Urology]
Referral Note: [id number] x [address] CHAVEZ Urology to set up next phase of treatment . You have a stent expect frequency urgency and blood in urine until stent is out
Monique Owens DO [Family Provider, [facility]]
Prescriptions:
New
cephalexin 500 mg capsule
500 mg PO BID Qty: 10 0RF
Continued
levothyroxine 150 MCG tablet
150 mcg PO DAILY@0700 Qty: 90 0RF
desonide 0.05 % Cream
1 applic TOPICAL DAILY PRN (Reason: eczema )
vitamin A 2,400 mcg Capsule
2,400 mcg PO DAILY
therapeutic multivitamin Tablet
1 tab PO DAILY
liothyronine 5 mcg Tablet
10 mcg PO DAILY
ferrous sulfate 325 mg (65 mg iron) Tablet
325 mg PO DAILY
Mounjaro 12.5 mg/0.5 mL Pen Injector
12.5 mg SC RANKIN
ergocalciferol (vitamin D2) 1,250 mcg (50,000 unit) capsule
1,250 mcg PO MOWEFR
Discharge Orders:
Discharge Patient (As Directed); Ordered 06/20/25
Ordered By: Lulu Felton
Discharge Date and Time
Discharge Date/Time: 06/20/25 12:44
Print Language: GREEK

Documented by User: Helena Porter MD 06/21/25 08:41
Discharge Summary
Discharge Data
Date of Admission: 06/19/25
Date of Discharge: 06/20/25
Hospital Course
Primary diagnosis: Left proximal ureteral stone with moderate hydroureteronephrosis status post stent placement this admission
Secondary diagnosis: Status post bariatric surgery in 2022, Type 2 diabetes
Hospital course:
Patient is a 39-year-old female with PMH of bariatric surgery in 2022, type 2 diabetes on Mounjaro and hypothyroidism who presented to [facility] with left back pain and abdominal pain. Patient had been experiencing this pain for 2 nights but came to the
ED when it did not resolve. In the ED patient's vitals were stable and labs were unremarkable. CT abdomen pelvis showed an 8 mm proximal left ureteral calculus with moderate hydroureteronephrosis. Patient was started on IV fluids, antibiotics and
urology was consulted. Urology then took patient to the OR for laser removal and stent placement on 06/19/2025. Patient recovered well from the procedure and noted complete resolution of pain. Patient was discharged home with a 5-day course of
antibiotic Keflex and informed to follow-up with urology as an outpatient for stent removal.
Imaging:
06/19/2025 CT abdomen and pelvis
IMPRESSION:
8 mm proximal left ureteral calculus with associated moderate left hydroureteronephrosis.
Discharge Plan
-
Patient Disposition: Home (Routine Discharge)
Discharge Diagnosis/Procedures: Left proximal ureteral stone with moderate hydroureteronephrosis status post stent placement this admission,
Status post bariatric surgery in 2022,
Type 2 diabetes
Condition: Good
Diet: No restrictions, As tolerated and Diabetic, Carb Controlled
Activity: No restrictions
Driving Restrictions: As prior to admission
Bathing Restrictions: None
Activity Restrictions/Additional Instructions:
Please follow-up with Urology.
Please take antibiotics for next 5 days: Keflex 500 mg by mouth twice daily
Stand Alone Forms: Return to Work
Referrals:
Huey Chavez MD [Active, Urology]
Referral Note: [id number] x [address] CHAVEZ Urology to set up next phase of treatment . You have a stent expect frequency urgency and blood in urine until stent is out
Monique Owens DO [Family Provider, [facility]]
Prescriptions:
New
cephalexin 500 mg capsule
500 mg PO BID Qty: 10 0RF
Continued
levothyroxine 150 MCG tablet
150 mcg PO DAILY@0700 Qty: 90 0RF
desonide 0.05 % Cream
1 applic TOPICAL DAILY PRN (Reason: eczema )
vitamin A 2,400 mcg Capsule
2,400 mcg PO DAILY
therapeutic multivitamin Tablet
1 tab PO DAILY
liothyronine 5 mcg Tablet
10 mcg PO DAILY
ferrous sulfate 325 mg (65 mg iron) Tablet
325 mg PO DAILY
Mounjaro 12.5 mg/0.5 mL Pen Injector
12.5 mg SC RANKIN
ergocalciferol (vitamin D2) 1,250 mcg (50,000 unit) capsule
1,250 mcg PO MOWEFR
Discharge Orders:
Discharge Patient (As Directed); Ordered 06/20/25
Ordered By: Lulu Felton
Discharge Date and Time
Discharge Date/Time: 06/20/25 12:44
Print Language: GREEK
[2025-06-20 12:04] VITALS: BP 107/60
--- NOTE | 2025-06-20 12:22 | CM ---
Patient seen at bedside
Discharge today
imm n/a
no needs
PLAN: home, no needs
transport self, drove to hospital
== END 2025-06-20 12:44 | disposition home or self-care (01) | DRG 661 ==
LOC: 3 WEST ACU 15:50
PROVIDERS: Physician Assistant; Student in an Organized Health Care Education/Training Program; ADMITTING PHYSICIAN Student in an Organized Health Care Education/Training Program; ATTENDING PHYSICIAN Internal Medicine; CONSULT PHYSICIAN Specialist; EMERGENCY PHYSICIAN Emergency Medicine; FAMILY PHYSICIAN Family Medicine
PROC: 0TC78ZZ Extirpation of Matter from Left Ureter, Via Natural or Artificial Opening Endoscopic (ICD-10-PCS; 2025-06-19)
PROC: 0T778DZ Dilation of Left Ureter with Intraluminal Device, Via Natural or Artificial Opening Endoscopic (ICD-10-PCS; 2025-06-19)
DX: N13.2 Hydronephrosis with renal and ureteral calculous obstruction (principal); Z98.84 Bariatric surgery status; E11.9 Type 2 diabetes mellitus without complications; E03.9 Hypothyroidism, unspecified; E28.2 Polycystic ovarian syndrome; Z79.890 Hormone replacement therapy; Z87.440 Personal history of urinary (tract) infections; Z87.442 Personal history of urinary calculi; F32.A Depression, unspecified; F41.9 Anxiety disorder, unspecified
CPT/HCPCS: 74018; 74176; 76000; 80048; 80053; 81003; 81015; 82365; 84703; 85025; 87086; 96361; 96374; 96375; 96376; 99285